=== PATIENT | female | born 1995 | race African-American/Black ===

== ENCOUNTER 2023-06-29 12:14 | Emergency (ER) | payer MEDICAID, SELFPAY ==
--- NOTE | ~2023-06-29 | XR_ITS ---
EXAMINATION: XR CHEST 2 VIEWS CLINICAL INFORMATION: Pain. COMPARISON: None. TECHNIQUE: Frontal and lateral views of the chest were obtained. FINDINGS: The heart, great vessels, pulmonary vasculature and mediastinum are normal. The lungs show no focal infiltrate, effusion or pneumothorax. There is no acute osseous abnormality. XR/XR chest 2V IMPRESSION: No active cardiopulmonary disease.
--- NOTE | 2023-06-29 12:17 | ECG_ITS ---
Test Reason : SOB Blood Pressure : / mmHG Vent. Rate : 061 BPM Atrial Rate : 061 BPM P-R Int : 128 ms QRS Dur : 092 ms QT Int : 428 ms P-R-T Axes : -20 017 024 degrees QTc Int : 430 ms Normal sinus rhythm Nonspecific ST and T wave abnormality Borderline ECG No previous ECGs available Referred By: Generic ED Physician Electronically Signed By:SHANTHI BARCLAY
[2023-06-29 12:22] VITALS: BP 135/80; PULSE 65; O2SAT 95
[2023-06-29 12:23] VITALS: BP 123/77; PULSE 56; RESP 16; TEMP 37.1; O2SAT 100; BMI 29.3
--- NOTE | 2023-06-29 12:37 | ED_ITS ---
HPI - Chest Pain General Chief Complaint: General Medical Stated Complaint: COUGH W/CP,DRY HEAVE,BODY ACHES,?COVID/FLU PER EMS Time Seen by Provider: 06/29/23 12:34 Source: patient Mode of arrival: EMS Limitations: no limitations History of Present Illness HPI narrative: 28 yo female no sig PMH has nexplanon reports chest pain for 1 month worse x 3 days has nausea body aches diarrhea pain worse x 3 days - chest hurts to touch, move and eat. No meds taken at home, no travel or procedures. MD complaint: chest heaviness Onset (ago): month(s) (1) Timing of current episode: increasing Prior episodes: Yes Onset: during rest Pain location: substernal Pain radiation: none Severity: moderate Quality: aching, heaviness and dull Relieving factors: nothing Exacerbating factors: eating, palpation and movement Context: recent illness Associated symptoms: nausea and cough Treatment prior to arrival: none Related Data Previous Rx's Medication Instructions Recorded ibuprofen 600 mg tablet 600 mg PO Q6H PRN pain #30 tabs 06/29/23 ondansetron 4 mg disintegrating 4 mg PO Q8H PRN nausea and 06/29/23 tablet vomiting #20 tabs Allergies Allergy/AdvReac Type Severity Reaction Status Date / Time No Known Allergies Allergy Unverified 03/17/20 19:45 [No Known Allergies*] Review of Systems 2 Review of Systems: Constitutional : No Weight loss, No Fever, No Chills ENT/Mouth : No sore throat, No Rhinorrhea Eyes: No Eye Pain, No Swelling Cardiovascular : pos Chest Pain, pos SOB, no Dyspnea on Exertion, No Orthopnea, No Edema, No Palpitations Respiratory : No Cough, No Sputum Gastrointestinal : pos Nausea, No Vomiting, pos Diarrhea, No abdominal Pain, No Hematochezia, No Melena Genitourinary : No Dysuria, No Urinary Frequency Musculoskeletal : No joint pain, pos Myalgias, No Joint Swelling Skin : No Skin Lesions, No rash Neuro : No Weakness, No Numbness, No Dizziness, No Headache Psych : No Anxiety/Panic, No Depression All other systems reviewed and are negative PMFSH Past Medical History Attestation statement: The following information was validated with the patient. Source: old records reviewed Medical History COVID Social History Social History Alcohol intake: current Alcohol intake frequency: holidays/special occasions only Smoked in Last 30 Days: No Use of substances other than those prescribed or required for medical reasons: No Advance Directives: No Advance Directives Information Provided: Yes Patient : No Physical Exam 2 Vital Signs: Vital Signs: Last Vital Signs Temp 98.8 F 06/29/23 12: Pulse 56 06/29/23 12:23 Resp 16 06/29/23 12:23 BP 123/77 06/29/23 12:23 Pulse Ox 100 06/29/23 12:23 O2 Del Method Room Air 06/29/23 12:23 BMI result Body Mass Index 29.3 Appearance: Alert. Oriented X3. No acute distress. Eyes: Pupils equal, round and reactive to light. ENT: Pharynx normal. Neck: Normal inspection. Neck supple. CVS: Normal heart rate and rhythm. Pulses normal. Chest: ttp along sternum reproduces pain Respiratory: No respiratory distress. Breath sounds normal. Abdomen: Soft and nontender. Skin: Skin warm and dry. Normal skin color. Normal skin turgor. Extremities: No lower extremity edema. No calf ttp Neuro: Oriented X 3. No motor deficit. No sensory deficit. Medications Administered Generic Name Dose Route Start Last Admin Trade Name Freq PRN Reason Stop Dose Admin Sodium Chloride 1,000 mls @ 999 mls/hr 06/29/23 13:00 06/29/23 13:56 Ns IV 06/29/23 14:00 999 mls/hr .Q1H1M TU Administration Discontinued Medications Generic Name Dose Route Start Last Admin Trade Name Freq PRN Reason Stop Dose Admin Ketorolac Tromethamine 15 mg 06/29/23 12:46 06/29/23 13:57 Ketorolac Tromethamine 15 Mg/Ml Vial IVPUSH 06/29/23 12:47 15 mg ONCE ONE Administration Ondansetron HCl 4 mg 06/29/23 12:46 06/29/23 13:57 Ondansetron Hcl 4 Mg/2 Ml Vial IVPUSH 06/29/23 12:47 4 mg ONCE ONE Administration Medical Decision Making Medical Decision Making MDM Narrative: 28 yo female with no sig PMH has nexplanon here with c/o chest wall pain and nausea along with headaches body aches and overall viral like picture she has had chest pain for a month has no known ACS risk factors - at this time will need EKG, trop x 1 given pain constant, ddimer given nexplanon use. Viral panel, supportive meds and labs. Differential Diagnosis Differential Diagnoses: The differential diagnosis associated with the presentation includes viral syndrome, costochondritis, chest wall pain, GERD Admission/Observation Consideration of admission/observation: Escalation of care including admission/observation considered trop flat and EKG nonspecific changes with neg trop and ddimer can be managed as outpatient VS stable has no known ACS risk factors Lab Data MDM Lab Attestation statement: I reviewed the patient's lab results. 06/29/23 12:48 06/29/23 12:48 Labs: Lab Results 06/29/23 06/29/23 Range/Units 12:48 12:50 WBC 4.8 (4.8-10.8) X10*3/uL RBC 4.71 (4.20-5.50) X10*6/uL Hgb 14.6 (12.0-16.0) g/dl Hct 43.5 (37.0-47.0) % MCV 92.4 (80.0-98.0) fL MCH 31.0 (27.0-33.0) pg MCHC 33.6 (31.0-35.0) g/dl RDW 13.1 (11.0-16.0) % Plt Count 274 (160-400) X10*3/uL MPV 10.8 (9.4-12.3) fL Immature Gran % (Auto) 0.0 (0.0-0.4) % Neut % (Auto) 55.6 (45-73) % Lymph % (Auto) 36.8 (20-40) % [place] % (Auto) 6.4 (2-11) % Eos % (Auto) 0.6 (0-4) % Baso % (Auto) 0.6 (0-2) % Lymph # (Auto) 1.8 (1.2-4.9) X10*3/uL [place] # (Auto) 0.3 (0.1-1.2) X10*3/uL Eos # (Auto) 0.0 (0.0-0.4) X10*3/uL Baso # (Auto) 0.0 (0.0-0.2) X10*3/uL Abs Immat Gran (auto) 0.00 (0.00-0.03) X10*3/uL Absolute Neuts (auto) 2.7 (2.0-8.3) x10*3/uL Absolute Nucleated RBC 0.000 (0.0-0.012) X10*3/uL Nucleated RBC % (auto) 0.0 (0.0-0.2) /100WBC D-Dimer High Sensitivty < 150 NG/ML Sodium 140 (135-145) mmol/L Potassium 3.6 (3.3-5.1) mmol/L Chloride 104 (96-108) mmol/L Carbon Dioxide 22 (22-29) mmol/L Anion Gap 18 (12-20) BUN 8 L (9-16) mg/dL Creatinine 0.86 (0.5-1.4) mg/dL Estim Creat Clear Calc 101.7 Estimated GFR > 60 Random Glucose 105 (60-115) mg/dL Calcium 10.3 H (8.4-10.2) mg/dL Magnesium 2.0 (1.6-2.6) mg/dL Total Bilirubin 1.4 H (0.0-1.0) mg/dL Direct Bilirubin 0.4 (0.0-0.5) mg/dL AST 24 (5-31) U/L ALT 27 (0-31) U/L Alkaline Phosphatase 63 (39-117) U/L Troponin I High Sens 2.7 (<3.5-17.0) ng/L Total Protein 8.2 H (6.5-8.0) g/dL Albumin 4.8 (3.5-5.0) g/dL Lipase 19 (8-78) U/L Beta HCG, Quant < 2 mIU/mL Influenza Type A (PCR) NEGATIVE (Negative) Influenza Type B (PCR) NEGATIVE (Negative) RSV RNA Qual (PCR) NEGATIVE (Negative) SARS-CoV-2 RNA (RT-PCR) NEGATIVE (Negative) Independent Interpretation I performed an independent interpretation of an: EKG and Plain X-Ray (normal ) Interpretation: Rate: 61 Rhythm: NSR [place]: normal Normal P waves. Normal AUNDREA. Normal QRS complex. ST T wave : no KAT, inverted t waves in V1, V2, V3 and III qTC: 430 prior studies: no prior The study has been interpreted contemporaneously by me. . Radiology Impression Discussion of test interpretation with radiology: I have reviewed the radiologist's reading. Independent Historian Clinical information obtained from an independent historian. History obtained from or confirmed by: EMS Prescription Management I considered prescription management with: Pain Medication and Other Discharge Plan Discharge Clinical Impression: Atypical chest pain, Acute viral syndrome, Acute costochondritis Patient Disposition: Home, Self-Care Instructions: Chest Pain (ED), Viral Syndrome (ED), Costochondritis (ED) Additional Instructions: test for heart - negative, chest xray negative, flu covid rsv negative blood clot test negative at this time stay hydrated, rest, drink plenty of fluids, alternate tylenol and motrin for pain return for worsening symptoms or concerns. follow up with your doctor for outpatient stress test or ECHO if this continues Prescriptions: New ibuprofen 600 mg tablet 600 mg PO Q6H PRN (Reason: pain) Qty: 30 0RF ondansetron 4 mg tablet,disintegrating 4 mg PO Q8H PRN (Reason: nausea and vomiting) Qty: 20 0RF Stand Alone Forms: Work/School Release
[2023-06-29 12:55] LABS: MANUAL DIFF FLAG NO
[2023-06-29 12:57] LABS: Basophils Percent Auto 0.6 % (0-2); Eosinophils Percent Auto 0.6 % (0-4); Hematocrit 43.5 % (37.0-47.0); Hemoglobin 14.6 g/dl (12.0-16.0); Lymphocytes Absolute Auto 1.8 X10*3/uL (1.2-4.9); Lymphocytes Percent Auto 36.8 % (20-40); Mean Corpuscular HGB Conc 33.6 g/dl (31.0-35.0); Mean Corpuscular Volume 92.4 fL (80.0-98.0); Mean Platelet Volume 10.8 fL (9.4-12.3); Monocytes Absolute Auto 0.3 X10*3/uL (0.1-1.2); Monocytes Percent Auto 6.4 % (2-11); Neutrophils Absolute Auto 2.7 x10*3/uL (2.0-8.3); Neutrophils Percent Auto 55.6 % (45-73); Platelet Count 274 X10*3/uL (160-400); Red Blood Count 4.71 X10*6/uL (4.20-5.50); Red Cell Distribution Width 13.1 % (11.0-16.0); White Blood Count 4.8 X10*3/uL (4.8-10.8)
[2023-06-29 13:17] LABS: Troponin-I High Sensitivity 2.7 ng/L (<3.5-17.0)
[2023-06-29 13:21] LABS: Alanine Aminotransferase 27 U/L (0-31); Albumin Level 4.8 g/dL (3.5-5.0); Alkaline Phosphatase 63 U/L (39-117); Anion Gap 18 (12-20); Aspartate Amino Transferase 24 U/L (5-31); Bilirubin Direct 0.4 mg/dL (0.0-0.5); Bilirubin Total 1.4 mg/dL (0.0-1.0); Blood Urea Nitrogen 8 mg/dL (9-16); Calcium 10.3 mg/dL (8.4-10.2); Carbon Dioxide 22 mmol/L (22-29); Chloride 104 mmol/L (96-108); Creatinine Clr Calc Pharmacy 101.7; Estimated Glomerular Filt Rate > 60; Glucose Random 105 mg/dL (60-115); HCG Quantitative < 2 mIU/mL; Lipase 19 U/L (8-78); Potassium 3.6 mmol/L (3.3-5.1); Sodium 140 mmol/L (135-145); Total Protein 8.2 g/dL (6.5-8.0)
[2023-06-29 13:23] LABS: D Dimer High Sensitivity < 150 NG/ML
[2023-06-29 13:40] LABS: Influenza A PCR NEGATIVE (Negative); Influenza B PCR NEGATIVE (Negative); Resp Syncy Virus RNA Qual PCR NEGATIVE (Negative); SARS COV2 PCR INHOUSE NEGATIVE (Negative)
[2023-06-29] MEDS: 0.9 % Sodium Chloride 1,000 ML 999 ML IV (13:56)
[2023-06-29] MEDS: ondansetron HCL 4 MG/2 ML VIAL IVPUSH (13:57)
[2023-06-29] MEDS: Ketorolac Tromethamine 15 MG/ML VIAL IVPUSH (13:57)
--- NOTE | 2023-06-29 13:59 | PC.NURSE ---
iv inserted, labs drawn, ekg performed, swab performed, ivf hung per order, pt medicated per order, vss, pt c/o 02/07 chest wall pain which increases with movement/palpation, also headache, nurse monitoring applied nsr 50s, vss, call arzate within reach, will continue to monitor
[2023-06-29 14:00] VITALS: BP 118/49; PULSE 56; RESP 14; TEMP 37; O2SAT 99
== END 2023-06-29 15:23 | disposition home or self-care (01) ==
PROVIDERS: Emergency Provider Emergency Medicine; PCP Internal Medicine
DX: B34.9 Viral infection, unspecified (principal); M94.0 Chondrocostal junction syndrome [Tietze]; R07.89 Other chest pain; R05.9 Cough, unspecified; M70.10 Bursitis, unspecified hand; R11.2 Nausea with vomiting, unspecified; R94.31 Abnormal electrocardiogram [ECG] [EKG]; Z20.822 Contact with and (suspected) exposure to COVID-19; Z20.828 Contact with and (suspected) exposure to other viral communicable diseases; Z79.899 Other long term (current) drug therapy
CPT/HCPCS: 0241U; 36415; 71046; 80048; 80076; 83690; 83735; 84484; 84702; 85025; 85379; 93005; 96374; 96375; 99284; 99285; J1885; J2405

== ENCOUNTER → 2023-06-29 12:17 | Outpatient (BNV) | payer MEDICAID, SELFPAY | PROVIDERS: Emergency Provider Emergency Medicine; PCP Internal Medicine; Visit Provider Internal Medicine | DX: R06.02 Shortness of breath (principal) | CPT/HCPCS: 93010 ==